=== PATIENT | female | born 1990 | race Caucasian/White ===

== ENCOUNTER → 2019-06-17 | Outpatient (CLI) | payer OTHER ==
--- NOTE | 2019-06-17 12:00 | REP ---
Right shoulder four views : There is no fracture or dislocation. Mineralization and joint spaces are normal. There are no calcifications or foreign bodies. Impression: Negative right shoulder . Electronically Signed by Rowdy Suarez MD 06/17/2019 11:51 A
== END ==
LOC: M LRY 11:07
PROVIDERS: ATTEND Physician Assistant
DX: M25.511 Pain in right shoulder (principal)
CPT/HCPCS: 73030; G0463

== ENCOUNTER 2020-05-12 11:10 | Emergency (ER) | payer OTHER ==
[~2020-05-12] VITALS: Ht 167.6 cm; Wt 81.7 kg
[2020-05-12 11:10] VITALS: BP 120/66
== END 2020-05-12 14:09 | disposition home or self-care (01) ==
LOC: M ED 11:10
DX: F32.9 Major depressive disorder, single episode, unspecified (principal); F41.9 Anxiety disorder, unspecified; Z88.2 Allergy status to sulfonamides

== ENCOUNTER 2023-07-10 11:58 | Emergency (ER) | payer OTHER ==
[~2023-07-10] VITALS: Ht 167.6 cm; Wt 88.3 kg
[2023-07-10 12:00] VITALS: BP 162/87; TEMP 97.9; O2SAT 99
[2023-07-10] MEDS ORDERED: METH54TA2 PO (12:09)
[2023-07-10] MEDS ORDERED: CLON2TAB7 PO (12:10)
[2023-07-10] MEDS ORDERED: AMBI10TA PO (12:10)
[2023-07-10] MEDS ORDERED: ONDA4TAB6 PO (12:58)
== END 2023-07-10 13:00 | disposition home or self-care (01) ==
LOC: M ED 11:58
DX: S00.93XA Contusion of unspecified part of head, initial encounter (principal); V49.40XA Driver injured in collision with unspecified motor vehicles in traffic accident, initial encounter; Y92.410 Unspecified street and highway as the place of occurrence of the external cause; Y93.89 Activity, other specified; Y99.8 Other external cause status; Z88.2 Allergy status to sulfonamides; Z79.899 Other long term (current) drug therapy

== ENCOUNTER 2023-07-17 09:52 | Emergency (ER) | payer OTHER ==
[~2023-07-17] VITALS: Ht 167.6 cm; Wt 88.2 kg
[~2023-07-17 09:52] MED LIST: AMBI10TA PO; CLON2TAB7 PO; METH54TA2 PO; ONDA4TAB6 PO
[2023-07-17 13:25] VITALS: BP 122/74; TEMP 97.9; O2SAT 98
== END 2023-07-17 13:32 | disposition home or self-care (01) ==
LOC: M ED 09:52
DX: S33.9XXA Sprain of unspecified parts of lumbar spine and pelvis, initial encounter (principal); V43.52XA Car driver injured in collision with other type car in traffic accident, initial encounter; Y92.9 Unspecified place or not applicable; Y93.9 Activity, unspecified; Y99.9 Unspecified external cause status; F41.9 Anxiety disorder, unspecified; Z79.899 Other long term (current) drug therapy; Z88.2 Allergy status to sulfonamides